=== PATIENT | male | born 1930 | race Caucasian/White ===

== ENCOUNTER 2018-02-13 23:03 | Inpatient (IN) | payer MEDICARE, BC ==
[~2018-02-13] VITALS: Ht 185.4 cm; Wt 105.2 kg
[2018-02-13 23:27] VITALS: BP 123/76
[2018-02-13 23:58] VITALS: BP 123/76
[2018-02-14 00:07] LABS: EOS # 0.1 (0.04-0.40); EOS % 0.5 % (0.0-4.0); HEMATOCRIT 41.7 % (42.0-52.0); HEMOGLOBIN 14.1 g/dL (13.5-18.0); LYMPH# 1.9 (1.50-4.00); MEAN CELL VOLUME 91 fl (78-100); MEAN CORPUSCULAR HEMOGLOBIN 31 pg (27-31); MEAN CORPUSCULAR HGB CONC 34 g/dL (33-37); MEAN PLATELET VOLUME 9.6 fl (7.4-10.4); MONO # 1.2 (0.20-0.80); NEU # 7.9 (1.40-6.50); PLATELET COUNT 143 K/mm3 (130-400); RED CELL DISTRIBUTION WIDTH 14.4 % (11.5-14.5)
[2018-02-14 00:12] LABS: ALBUMIN 3.5 g/dL (3.5-5.0); CALCIUM 8.4 mg/dL (8.4-10.2); TOTAL BILIRUBIN 0.7 mg/dL (0.2-1.3); TOTAL PROTEIN 5.8 g/dL (6.3-8.2)
[2018-02-14 00:54] LABS: URINE APPEARANCE HAZY; URINE BILIRUBIN NEGATIVE (NEGATIVE); URINE BLOOD TRACE (NEGATIVE); URINE COLOR DK YELLOW; URINE GLUCOSE NEGATIVE (NEGATIVE); URINE KETONE 1+ (NEGATIVE); URINE LEUKOCYTE ESTERASE TRACE (NEGATIVE); URINE NITRATE NEGATIVE (NEGATIVE); URINE PROTEIN(semi-quant) TRACE mg/dL (NEGATIVE); URINE UROBILINOGEN NORMAL (NORMAL)
[2018-02-14 00:55] LABS: URINE MUCUS PRESENT (NOT PRESENT)
[2018-02-14] MEDS ORDERED: ASPIRIN E.C. 8181 MG PO (01:22)
[2018-02-14] MEDS ORDERED: PRAVASTATIN SOD40 MG PO (01:23)
[2018-02-14] MEDS ORDERED: DAILY MULTIPLE1 T18 PO (01:23)
[2018-02-14] MEDS ORDERED: FLOMAX0.4 MG PO (01:24)
[2018-02-14] MEDS ORDERED: OMEPRAZOLE D/R20 MG PO (01:24)
[2018-02-14] MEDS ORDERED: SOTALOL HYDROCH80 MG PO (01:25)
[2018-02-14] MEDS ORDERED: FISH OIL1 IU PO (01:25)
[2018-02-14] MEDS ORDERED: RISPERIDONE0.25 M2 PO (01:25)
[2018-02-14] MEDS ORDERED: TRAMADOL 50 MG TAB PO (01:26)
[2018-02-14 03:00] VITALS: BP 114/77
[2018-02-14 06:30] VITALS: BP 144/88
[2018-02-14 07:10] LABS: ALBUMIN 3.7 g/dL (3.5-5.0); CALCIUM 8.5 mg/dL (8.4-10.2); TOTAL BILIRUBIN 0.9 mg/dL (0.2-1.3); TOTAL PROTEIN 6.3 g/dL (6.3-8.2)
[2018-02-14 07:17] LABS: HEMATOCRIT 44.4 % (42.0-52.0); HEMOGLOBIN 14.9 g/dL (13.5-18.0); MEAN CELL VOLUME 91 fl (78-100); MEAN CORPUSCULAR HEMOGLOBIN 30 pg (27-31); MEAN CORPUSCULAR HGB CONC 34 g/dL (33-37); MEAN PLATELET VOLUME 10.1 fl (7.4-10.4); PLATELET COUNT 142 K/mm3 (130-400); RED CELL DISTRIBUTION WIDTH 14.5 % (11.5-14.5); WHITE BLOOD COUNT 10.9 K/mm3 (4.8-10.8)
[2018-02-14 07:54] LABS: BAND 1 % (0-10); LYMPHOCYTE 12 % (20-51); MONOCYTE 2 % (3-10); NEUTROPHILS 85 % (42-75)
[2018-02-14 11:33] VITALS: BP 119/77
[2018-02-14 15:11] VITALS: BP 160/72
[2018-02-14 18:29] VITALS: BP 137/68
[2018-02-14 22:39] VITALS: BP 134/68
[2018-02-15 03:06] VITALS: BP 142/82
[2018-02-15 06:12] VITALS: BP 137/78
[2018-02-15 07:03] LABS: HEMATOCRIT 40.6 % (42.0-52.0); HEMOGLOBIN 13.9 g/dL (13.5-18.0); MEAN CELL VOLUME 90 fl (78-100); MEAN CORPUSCULAR HEMOGLOBIN 31 pg (27-31); MEAN CORPUSCULAR HGB CONC 34 g/dL (33-37); PLATELET COUNT 154 K/mm3 (130-400); RED CELL DISTRIBUTION WIDTH 14.3 % (11.5-14.5); WHITE BLOOD COUNT 15.6 K/mm3 (4.8-10.8)
[2018-02-15 07:27] LABS: ALBUMIN 3.5 g/dL (3.5-5.0); CALCIUM 8.2 mg/dL (8.4-10.2); POTASSIUM 3.9 mmol/L (3.6-5.0); TOTAL BILIRUBIN 0.4 mg/dL (0.2-1.3); TOTAL PROTEIN 5.9 g/dL (6.3-8.2)
[2018-02-15 07:33] LABS: BAND 1 % (0-10); LYMPHOCYTE 8 % (20-51); MONOCYTE 4 % (3-10); NEUTROPHILS 87 % (42-75); OVALOCYTES 1+
[2018-02-15 11:45] VITALS: BP 156/97
[2018-02-15 15:00] VITALS: BP 151/89
[2018-02-15 15:03] LABS: URINE APPEARANCE CLEAR; URINE BILIRUBIN NEGATIVE (NEGATIVE); URINE BLOOD NEGATIVE (NEGATIVE); URINE COLOR YELLOW; URINE GLUCOSE NEGATIVE (NEGATIVE); URINE KETONE NEGATIVE (NEGATIVE); URINE LEUKOCYTE ESTERASE NEGATIVE (NEGATIVE); URINE NITRATE NEGATIVE (NEGATIVE); URINE PROTEIN(semi-quant) NEGATIVE (NEGATIVE); URINE UROBILINOGEN NORMAL (NORMAL); URINE WBC 0 /hpf (0-3)
[2018-02-15 18:41] VITALS: BP 118/74
[2018-02-16 02:37] VITALS: BP 151/81
[2018-02-16 06:24] VITALS: BP 156/93
[2018-02-16 07:56] LABS: CALCIUM 8.5 mg/dL (8.4-10.2)
[2018-02-16 11:00] VITALS: BP 138/81
[2018-02-16 15:00] VITALS: BP 130/80
[2018-02-16 18:33] VITALS: BP 133/72
[2018-02-16 22:50] VITALS: BP 150/81
[2018-02-17 03:09] VITALS: BP 156/90
[2018-02-17 06:07] VITALS: BP 163/93
[2018-02-17 08:30] LABS: CALCIUM 8.3 mg/dL (8.4-10.2); POTASSIUM 3.7 mmol/L (3.6-5.0)
[2018-02-17 08:31] LABS: EOS % 0.1 % (0.0-4.0); HEMATOCRIT 42.4 % (42.0-52.0); LYMPH# 2.1 (1.50-4.00); MEAN CELL VOLUME 91 fl (78-100); MEAN CORPUSCULAR HEMOGLOBIN 30 pg (27-31); MEAN CORPUSCULAR HGB CONC 33 g/dL (33-37); MEAN PLATELET VOLUME 9.6 fl (7.4-10.4); MONO # 0.9 (0.20-0.80); NEU # 6.3 (1.40-6.50); PLATELET COUNT 163 K/mm3 (130-400); RED BLOOD COUNT 4.66 M/mm3 (4.20-5.60); RED CELL DISTRIBUTION WIDTH 14.1 % (11.5-14.5); WHITE BLOOD COUNT 9.4 K/mm3 (4.8-10.8)
[2018-02-17 09:16] LABS: URINE APPEARANCE HAZY; URINE COLOR YELLOW; URINE PROTEIN(semi-quant) TRACE mg/dL (NEGATIVE)
[2018-02-17 09:17] LABS: URINE BILIRUBIN NEGATIVE (NEGATIVE); URINE BLOOD 50 ery/uL (NEGATIVE); URINE GLUCOSE NEGATIVE (NEGATIVE); URINE KETONE NEGATIVE (NEGATIVE); URINE LEUKOCYTE ESTERASE NEGATIVE (NEGATIVE); URINE NITRATE NEGATIVE (NEGATIVE); URINE UROBILINOGEN NORMAL (NORMAL)
[2018-02-17 11:00] VITALS: BP 121/70
[2018-02-17 15:00] VITALS: BP 119/71
[2018-02-17 19:00] VITALS: BP 118/75
[2018-02-18 00:51] VITALS: BP 144/79
[2018-02-18 03:27] VITALS: BP 144/78
[2018-02-18 06:29] VITALS: BP 145/77
[2018-02-18 14:53] VITALS: BP 121/77
[2018-02-18 19:00] VITALS: BP 119/69
[2018-02-18 22:49] VITALS: BP 144/88
[2018-02-19 03:07] VITALS: BP 168/92
[2018-02-19 06:19] VITALS: BP 178/75
[2018-02-19 10:32] VITALS: BP 106/65
[2018-02-19] MEDS ORDERED: ZITHROMAX Z PA250 MG PO (10:33)
[2018-02-19] MEDS ORDERED: FUROSEMIDE20 MG PO (10:34)
[2018-02-19] MEDS ORDERED: PREDNISONE10 MG PO (10:35)
[2018-02-19] MEDS ORDERED: ALBUTEROL2.5 MG/3 M IH (10:36)
[2018-02-19] MEDS ORDERED: AEROSOL THERAPY1 DEV INH ×2 (10:37→11:00)
[2018-02-19] MEDS ORDERED: ADULT AEROSOL1 EACH MC (11:00)
== END 2018-02-19 12:11 | disposition home health service (06) | DRG 871 ==
LOC: MED/SURG 23:03
PROVIDERS: Family Medicine; Nurse Practitioner Primary Care; Physician Assistant; ADMIT Nurse Practitioner
DX: A41.9 Sepsis, unspecified organism (principal); J18.9 Pneumonia, unspecified organism; F05 Delirium due to known physiological condition; Z66 Do not resuscitate; F03.90 Unspecified dementia, unspecified severity, without behavioral disturbance, psychotic disturbance, mood disturbance, and anxiety; I48.91 Unspecified atrial fibrillation; I10 Essential (primary) hypertension; I25.10 Atherosclerotic heart disease of native coronary artery without angina pectoris; E78.5 Hyperlipidemia, unspecified; Z95.0 Presence of cardiac pacemaker; Z87.891 Personal history of nicotine dependence; R09.02 Hypoxemia
CPT/HCPCS: A4216; J0456; J0696; J1650; J1940; J2060; J2930; J7030; J7050; J7512

== ENCOUNTER 2018-06-23 17:34 | Emergency (ER) | payer MEDICARE, BC ==
[~2018-06-23] VITALS: Ht 185.4 cm; Wt 106.8 kg
[~2018-06-23 17:34] MED LIST: ADULT AEROSOL1 EACH MC; AEROSOL THERAPY1 DEV INH; ALBUTEROL2.5 MG/3 M IH; ASPIRIN E.C. 8181 MG PO; DAILY MULTIPLE1 T18 PO; FISH OIL1 IU PO; FLOMAX0.4 MG PO; FUROSEMIDE20 MG PO; OMEPRAZOLE D/R20 MG PO; PRAVASTATIN SOD40 MG PO; PREDNISONE10 MG PO; RISPERIDONE0.25 M2 PO; SOTALOL HYDROCH80 MG PO; TRAMADOL 50 MG TAB PO; ZITHROMAX Z PA250 MG PO
[2018-06-23 18:23] VITALS: BP 130/81
[2018-06-23 18:34] LABS: EOS # 0.1 (0.04-0.40); EOS % 1.6 % (0.0-4.0); HEMATOCRIT 44.8 % (42.0-52.0); HEMOGLOBIN 14.7 g/dL (13.5-18.0); LYMPH# 1.9 (1.50-4.00); MEAN CELL VOLUME 91 fl (78-100); MEAN CORPUSCULAR HEMOGLOBIN 30 pg (27-31); MEAN CORPUSCULAR HGB CONC 33 g/dL (33-37); NEU # 5.4 (1.40-6.50); PLATELET COUNT 185 K/mm3 (130-400); RED BLOOD COUNT 4.92 M/mm3 (4.20-5.60); RED CELL DISTRIBUTION WIDTH 14.3 % (11.5-14.5); WHITE BLOOD COUNT 8.6 K/mm3 (4.8-10.8)
[2018-06-23] MEDS ORDERED: LORAZEPAM0.5 M1 PO (18:40)
[2018-06-23] MEDS ORDERED: AZELASTINE137 MCG/A1 NAS (18:41)
[2018-06-23] MEDS ORDERED: OXY (18:42)
[2018-06-23 18:48] LABS: ALBUMIN 3.7 g/dL (3.5-5.0); CALCIUM 8.8 mg/dL (8.4-10.2); POTASSIUM 4.1 mmol/L (3.6-5.0); TOTAL BILIRUBIN 0.6 mg/dL (0.2-1.3); TOTAL PROTEIN 6.2 g/dL (6.3-8.2)
== END 2018-06-23 19:40 | disposition home or self-care (01) ==
LOC: ED 17:34
PROVIDERS: Family Medicine
DX: R53.81 Other malaise (principal); F03.90 Unspecified dementia, unspecified severity, without behavioral disturbance, psychotic disturbance, mood disturbance, and anxiety; I48.91 Unspecified atrial fibrillation; I25.10 Atherosclerotic heart disease of native coronary artery without angina pectoris; I10 Essential (primary) hypertension; Z95.0 Presence of cardiac pacemaker; Z96.653 Presence of artificial knee joint, bilateral